=== PATIENT | male | born 1985 | race Caucasian/White ===

== ENCOUNTER 2024-07-31 12:49 | Inpatient (IN) | payer BC, SELFPAY ==
[2024-07-31] VITALS (21 sets, daily range): BP systolic 88–129; BP diastolic 50–78; BMI 24.7
--- NOTE | 2024-07-31 08:31 | EDRN ---
Pt has history of crohn's colitis and had J-pouch surgery awhile ago. Last night started to see blood coming out. Colon resection then colon reconnected. Pt filled toilet bowl w/ blood.
--- NOTE | 2024-07-31 08:51 | ED.GENMED ---
History of Present Illness
General
Chief Complaint: Rectal Bleeding
Time Seen by Provider: 07/31/24 08:17
History of Present Illness
History of Present Illness:
38-year-old male with history of Crohn's colitis presents to the emergency department for evaluation of bright red blood per rectum/bloody stool beginning yesterday. Reports mild abdominal cramping but no significant discomfort. Denies any
tenesmus or bowel urgency. No associated fever, chills, sweats, nausea, or vomiting. Prior abdominal surgery includes partial colectomy with J-pouch, ileostomy with revision, incisional hernia repair. Currently maintained on Remicade, has been
stable for quite some time. Last colonoscopy was in October. GI doctor is at [facility]
Past History
Past History
ED Past Medical History: Psychiatric (Depression, ADHD, substance abuse) and Other (Crohn's disease, chronic pain syndrome)
ED Past Surgical History: Bowel resection (Colon resection with J-pouch formation.) and Other (Hernia repair)
Social History
Alcohol: None
Drug: Former user
Personal: Single
Living: with family
Employment: Not employed
Family History
Family History: Other (Noncontributory)
Review of Systems
Review of Systems
Allergies reviewed?: Yes
Phy Exam
Physical Exam
Physical Exam:
GEN: Well appearing, NAD, WDWN
HEENT: Oral mucosa moist, no scleral icterus
Cardiac: Regular rate and rhythm, no murmur
Lung: No respiratory distress, no tachypnea
Abdomen: Soft, no focal tenderness, no rigidity
Rectal: No obvious rectal bleeding, no fissure, no hemorrhoid
MSK: No gross deformity or injuries
Skin: Good color, no pallor or jaundice, no rashes
Neuro: AO x3, moves all extremities freely
Psych: Calm, cooperative
Course
Orders/Labs/Results
Orders:
Orders
07/31/24 08:38
Cardiac Monitoring- Treatment ONCE
IV Insert/Care/Rem.- Treatment PRN
07/31/24 08:48
Type And Crossmatch [Type+Screen] Urgent
C-Reactive Protein Urgent
Comment: ADD ON
Complete Blood Count/With Diff Urgent
Comprehensive Metabolic Panel Urgent
Erythrocyte Sed Rate Urgent
Comment: ADD ON
07/31/24 08:50
Add On- LAB Urgent
Tests Added?: CRP, ESR
Iohexol [Omnipaque] See Protocol PO NOW STA
07/31/24 08:51
CT Abd/pel W Iv And Oral Contr Urgent
Comment:
Reason For Exam: bright red blood per rectum, hx of Crohns
07/31/24 09:16
ABO2 Routine
BBK Wristband Number:
Associate notified that ABO2 has been ordered: [id number]
Date: 07/31/24
Time: 09:10
Clinical Rehabilitation Specialist ID: [id number]
07/31/24 11:56
HYDROmorphone [Dilaudid] 0.5 mg IV NOW STA
07/31/24 12:40
Admit/Transfer Patient As Directed
Co-Sign Provider:
Level of Care: Inpatient admission
Assign to:: IMU- Intermediate Care
Physician / Group: tiffanie
Diagnosis: chrohns flare
Reason for Hospitalization: chrohns flare
Expected length of stay greater than two midnights?: Yes
ELOS- Estimated Length of Stay in days: 2
I certify the patient meets the requirements for IP care: Yes
PRN Pain Medication Management As Directed
May give lesser potent ordered pain med per pt: Yes
preference::
Protocol:: Medication orders for pain may be administered in a
manner that supports deferring to patient preference
when the pt is:
- Requesting an ordered lesser potent pain medication.
Least to most potent pain medications are defined
as: acetaminophen < NSAID < tramadol < opioids
(morphine, oxycodone, hydromorphone).
- Requesting a lesser dose of the same medication IF
ORDERED.
- Requesting a less intrusive route of administration
if both routes are prescribed by the provider (PO <
IV).
07/31/24 12:41
Code Status As Directed
Resuscitation Status: Full Code
07/31/24 13:26
C difficile Antigen & Toxins Urgent
ALBINO Source: Feces/Stool
Specimen Description:
Date Specimen was Collected: 07/31/24
Time Specimen was Collected: 13:24
Stool Culture Urgent
ALBINO Source: Feces/Stool
Specimen Description:
Date Specimen was Collected: 07/31/24
Time Specimen was Collected: 13:25
Abnormal Lab Results
07/31/24
08:48
RBC 4.04 L 10^6/uL
(4.70-6.10)
Hgb 10.9 L g/dL
(13.0-18.0)
Hct 34.0 L %
(39.0-52.0)
MCHC 32.1 L g/dL
(33.0-37.0)
RDW 14.9 H %
(11.5-14.5)
MPV 12.1 H fL
(7.4-10.4)
Absolute Lymphs (auto) 1.1 L 10^3/uL
(1.2-3.4)
Lymphocytes % 19.3 L %
(20.5-51.1)
Glucose 105 H mg/dl
(70-99)
Calcium 7.9 L mg/dl
(8.4-10.2)
Total Protein 6.1 L g/dl
(6.3-8.2)
07/31/24 08:48
07/31/24 08:48
Vital Signs
Initial and Last Documented VS:
Initial Vital Signs
Temp Pulse Resp BP Pulse Ox
98.2 F 66 16 129/76 100
07/31/24 08:11 07/31/24 08:11 07/31/24 08:11 07/31/24 08:11 07/31/24 08:11
Last Documented Vital Signs
Temp Pulse Resp BP Pulse Ox
98.2 F 61 17 109/56 100
07/31/24 08:11 07/31/24 14:15 07/31/24 14:15 07/31/24 13:30 07/31/24 14:15
MDM/Problems Addressed
MDM/Problems Addressed:
On arrival the patient had only noted a few small episodes of bright red blood per rectum and thus was sent for a CT scan with IV and p.o. contrast to evaluate for potential Crohn's flareup, this was unremarkable however shortly after completion of
study the patient had multiple high-volume episodes of blood per rectum and a vasovagal event prompting repeat hemoglobin check, IV fluid resuscitation, and repeat CT angiogram study, and this was unremarkable however limited due to retained
contrast within the bowel. He stabilized thereafter and did not have any further episodes of blood per rectum, will be admitted to the hospitalist service. Given negative inflammatory markers do not see indication for steroids at this time
*Critical Care Note
Total Time (30-74mins, 75-104mins- exclusive of procedures): Not Applicable
Update Note
Update Note:
1322: Staff emergency alert called due to patient having a vagal episode while passing another episode of bright red blood per rectum. Assisted back into bed, bradycardic and normotensive. Repeat hemoglobin will be sent and 1 L normal saline
ordered, will send for CT angiogram of the abdomen pelvis due to increased frequency of blood per rectum
ED Attending Note
-
Portions of this chart may have been created with voice recognition software.� Occasional wrong word or��sound alike� substitutions may have occurred due to the inherent limitations of voice recognition software.
Discharge Plan
Departure
Patient Disposition: Admit
Date of Disposition: 07/31/24
Time of Disposition: 12:22
Admit to: Med/Surg
Presentation/result/management discussed w/ accepting MD/DO: Hospitalist
Patient with high blood pressure during this ER visit?: No
Discharge Problem:
Bright red blood per rectum
Interventions
Interventions:
*Risk Screen - Suicide Last Done: 07/31/24 08:11
*General Assessment Last Done: 07/31/24 08:34
*Neglect/Abuse Screening Last Done: 07/31/24 08:11
ED- Fall Risk Assessment Last Done: 07/31/24 08:34
*ED COVID-19 Vaccine History Last Done: 07/31/24 08:34
EB-Xdlhdj-Qdomtgonnw Assessment Last Done: 07/31/24 09:06
ED- Cardiac Assessment Last Done: 07/31/24 09:06
ED- Pulmonary Assessment Last Done: 07/31/24 09:06
[2024-07-31 09:04] LABS: % Basophils 0.7 % (0-2); % Eosinophils 0.7 % (0-6); % Lymphocytes 19.3 % (20.5-51.1); % Monocytes 5.9 % (1.7-9.3); % Neutrophils 73.4 % (42.2-75.2); Absolute Lymphocytes 1.1 10^3/uL (1.2-3.4); Absolute Monocytes 0.3 10^3/uL (0.1-0.6); Hemoglobin 10.9 g/dL (13.0-18.0); Mean Corp Hgb Conc. 32.1 g/dL (33.0-37.0); Mean Corpuscular Volume 84.2 fL (80.0-94.0); Mean Platelet Volume 12.1 fL (7.4-10.4); Nucleated Red Blood Cells % 0 % (-); Platelet Count 191 10^3/uL (130-400); Red Blood Cell Count 4.04 10^6/uL (4.70-6.10); Red Cell Dist. Width 14.9 % (11.5-14.5); White Blood Cell Count 5.5 10^3/uL (4.8-10.8)
[2024-07-31 09:13] LABS: ALT (SGPT) 18 U/L (0-50); AST (SGOT) 20 U/L (17-59); Albumin 3.8 g/dl (3.5-5.0); Alkaline Phosphatase 39 U/L (38-126); Blood Urea Nitrogen 19 mg/dl (9-20); Calcium 7.9 mg/dl (8.4-10.2); Carbon Dioxide 26 mmol/L (22-30); Chloride 104 mmol/L (98-107); Estimated Creatinine Clearance > 125 ml/min; Glucose 105 mg/dl (70-99); Potassium 4.2 mmol/L (3.5-5.1); Sodium 138 mmol/L (135-145); Total Bilirubin 0.2 mg/dl (0.2-1.3); Total Protein 6.1 g/dl (6.3-8.2); eGFR > 60.00
[2024-07-31] MEDS: OMNIPAQUE 50 ML PO (09:13)
[2024-07-31 09:15] LABS: C-Reactive Protein < 5.00 mg/L (0.0-10.00)
[2024-07-31 09:23] LABS: Erythrocyte Sed Rate 7 mm/hour (0-20)
--- NOTE | 2024-07-31 11:40 | EDRN ---
Pt returned from CT w/blood on bed, large amount. Pt then had blood in BR thereafter.
--- NOTE | 2024-07-31 11:45 | EDRN ---
Pt complaining of pain and Geraldo SHARMA informed.
[2024-07-31] MEDS: DILAUDID 0.5 MG IV ×4 (12:12→23:20)
--- NOTE | 2024-07-31 12:42 | HPS.HSE ---
Family Physician
-
Family Physician: NOELLE GERMAN PA-C
Chief Complaint
-
bloody stool
History of Present Illness
38-year-old male past medical history of Crohn's disease status post partial colon resection with J-pouch formation, ileostomy with revision, incisional hernia repair in 2012 on Remicade, chronic pain syndrome, depression, ADHD, presenting with
bright red blood per rectum and multiple episodes of diarrhea starting yesterday. He has mild abdominal cramping. He denies any pain with bowel movements. Denies fevers or chills, sweating or nausea or vomiting. No recent antibiotic use. Has
not recently been on steroids.
His GI doctor at [facility]. His last colonoscopy was in October.
Denies smoking, alcohol, drugs.
No family history of Crohn's disease or autoimmune disorders.
Medical History
Past Medical History
Past Medical History: Reports Other (Crohn's disease status post partial colon resection with J-pouch formation, ileostomy with revision, incisional hernia repair in 2013 on Remicade, chronic pain syndrome, depression, ADHD,)
Past Surgical History: Reports Other (Bowel resection (Colon resection with J-pouch formation.) and Other (Hernia repair))
Social History
Tobacco: Non-smoker
Alcohol: None
Drug: None
Family History
Family History: Not pertinent
Allergies / Home Medications
Allergies reflects when Allergies were last updated in [employer].
Home Medications with original date entered in [employer]
Allergy/Medication List:
Allergies
Allergy/AdvReac Type Severity Reaction Status Date / Time
cefaclor [From [facility]] Allergy Anaphylaxis Verified 07/31/24 08:11
Home Medications
dextroamphetamine-amphetamine ER 30 mg 24hr capsule,extend release (Adderall XR) 30 mg PO DAILY 04/17/15
Review of Systems
-
History Source: Patient
A 12 point ROS was completed and negative except as noted: Yes
Constitutional: Reports No Symptoms
EENT: Reports No Symptoms
Respiratory: Reports No Symptoms
Cardiac: Reports No Symptoms
Abdomen/GI: Reports See HPI
: Reports No Symptoms
Musculoskeletal: Reports No Symptoms
Skin: Reports No Symptoms
Neurological: Reports No Symptoms
Endocrine: Reports No Symptoms
Hematologic/Lymphatic: Reports No Symptoms
Psych: Reports No Symptoms
Physical Exam
Vital Signs
Vital Signs
Temp Pulse Resp BP Pulse Ox
98.2 F 69 17 112/64 100
07/31/24 08:11 07/31/24 12:30 07/31/24 12:30 07/31/24 12:00 07/31/24 12:30
Physical Exam
General: Well Developed, Well Nourished and No Apparent Distress
HEENT: NormoCephalic, Moist mucous membranes and Atraumatic
Respiratory: Clear
Cardiac: S1/S2 and Regular Rhythm; No Murmur or Rub
GI: Soft, Non Distended, Normal Bowel Sounds and Tender (periumbilical ); No Organomegaly
Rectal: Deferred by Provider
Musculoskeletal: No Clubbing, No Cyanosis and No Edema
Skin: No Rash
Neuro: Nonfocal/grossly intact
Laboratory Results
-
07/31/24 08:48
07/31/24 08:48
Laboratory Results
Total Bilirubin 0.2 mg/dl (0.2-1.3) 07/31/24 08:48
AST 20 U/L (17-59) 07/31/24 08:48
ALT 18 U/L (0-50) 07/31/24 08:48
Alkaline Phosphatase 39 U/L (38-126) 07/31/24 08:48
Data Reviewed
-
Lab Data: Labs Reviewed by me
Old Records: Reviewed
Impression/Plan
-
IMPRESSION:
PLAN:
# Bright red blood per rectum secondary to enteritis likely secondary to Crohn's flare
# Crohn's disease status post partial colon resection with J-pouch formation, ileostomy with revision, incisional hernia repair
-CT abdomen pelvis shows postoperative changes of colectomy with prominence of the distal small bowel Aramis postoperative, short segment of mild wall thickening and mucosal hyperenhancement within the distal small bowel adjacent to the pouch
anastomosis suspicious for enteritis, mild prominence of intrahepatic bile ducts
-Has been stable on Remicade
-N.p.o.
-IV fluids
-Check stool culture, C. difficile
-GI consulted
Chronic normocytic anemia
-Hemoglobin stable at 10.9
Chronic pain syndrome
Depression/ADHD
Full code
DVT prophylaxis�SCDs
N.p.o.
--- NOTE | 2024-07-31 13:25 | EDRN ---
Pt went to BR to have BM and fainted on toilet. Had large amount of blood in stool specimen container. pt was taken from toilet to stretcher in BR. Pt was all sweaty and H+H drawn and sent to lab w/ CTA of Abd/Pelv ordred and IVF 1 l wide open hung
to infuse at this time.
[2024-07-31] MEDS: NSS 1000 IV ×2 (13:29→18:20)
[2024-07-31 13:32] LABS: Hematocrit 31.4 % (39.0-52.0); Hemoglobin 10.1 g/dL (13.0-18.0)
--- NOTE | 2024-07-31 13:36 | EDRN ---
Surgeon Dr. Fry was in to see pt. Dr. Del Valle in to see pt now.
--- NOTE | 2024-07-31 13:53 | EDRN ---
Pt taken to CT at this time.
--- NOTE | 2024-07-31 14:12 | EDRN ---
Pt in BR at this time.
--- NOTE | 2024-07-31 16:45 | EDRN ---
Pt medicated for pain at this time after requesting pain medication.
--- NOTE | 2024-07-31 17:03 | EDRN ---
Report called to Marlene RAMIREZ at this time. Pt is assigned to IMU bed 3344 at this time that is in IN PROGRESS status.
--- NOTE | 2024-07-31 18:42 | PTCARENOTE ---
Admitted to 3344, IMU monitors placed. Admission completed at bedside. IVF initiated as ordered. NPO x sips of clears- water given pt informed. Family at bedside.
[2024-07-31] MEDS: ATIVAN 0.5 MG PO (22:10)
[2024-08-01] VITALS (17 sets, daily range): BP systolic 109–132; BP diastolic 55–79
[2024-08-01] MEDS: DILAUDID 1 MG IV ×6 (02:26→21:34)
[2024-08-01] MEDS: NSS 1000 IV ×3 (05:02→23:35)
--- NOTE | 2024-08-01 05:17 | PTCARENOTE ---
Assumed care of Pt at shift change; Pt resting comfortably in bed with at bedside; Pt anxious and stated that he is unable to use bedpan or urinal while in bed - insisted on getting up to bathroom. Agreed to trial Pt standing at bedside - Pt
became severely dizzy and needed to be assisted back to bed immediately. B/P 111/76 lying and 104/64 sitting; Pt continued to refuse bedpan. Eventually symptoms improved and able to get Pt to bedside commode safely. Pt passed large amount of dark
red blood x 2 overnight. Pain poorly managed with Dilaudid 0.5mg q 4hrs - Provider notified, order received for Dilaudid 1mg. Will continue to monitor and assess.
[2024-08-01 06:27] LABS: % Basophils 0.4 % (0-2); % Eosinophils 0.4 % (0-6); % Immature Granulocytes 0.2 % (0-0.5); % Lymphocytes 26.9 % (20.5-51.1); % Monocytes 7.4 % (1.7-9.3); % Neutrophils 64.7 % (42.2-75.2); Absolute Lymphocytes 1.2 10^3/uL (1.2-3.4); Absolute Monocytes 0.3 10^3/uL (0.1-0.6); Absolute Neutrophils 2.9 10^3/uL (1.4-6.5); Hematocrit 20.3 % (39.0-52.0); Hemoglobin 6.6 g/dL (13.0-18.0); Mean Corp Hgb Conc. 32.5 g/dL (33.0-37.0); Mean Corpuscular Hgb 27.2 pg (27.0-31.0); Mean Corpuscular Volume 83.5 fL (80.0-94.0); Nucleated Red Blood Cells % 0 % (-); Red Blood Cell Count 2.43 10^6/uL (4.70-6.10); Red Cell Dist. Width 14.9 % (11.5-14.5); White Blood Cell Count 4.5 10^3/uL (4.8-10.8)
--- NOTE | 2024-08-01 06:51 | CON.GI ---
Consultation
-
Date/Time Consultation Requested: 07/31/2024, 12:42
Date/Time Consultation Performed: 08/01/2024, 6:52 AM
Requesting Provider: Dr. Cope
Performing Provider: Dr. Hendricks
Reason for Consultation: Bright red blood per rectum, hx of Crohn's
Medical History
Chief Complaint / HPI
Chief Complaint: Bright red blood per rectum
History of Present Illness:
Mr. Christian is a 38 y.o male with past medical history of Crohn's disease s/p J-pouch (given previous c/f UC and s/p three-stage IPAA with creation of J pouch in [id number]) on IFX (q 8 weeks) and chronic pain syndrome who presented to the ED with
bright red blood per rectum. Gastroenterology has been consulted for further evaluation and management.
Patient states he was in his USOH until two days ago on Friday when he developed painless, bright red blood per rectum. He denies any prior history of rectal bleeding or bloody stools in the past. States he was having well-formed bowel movements
which was somewhat atypical when he was up in [place] on Friday as he normally has looser bowel movements given his J pouch. Normally, he usually has 4-5 bowel movements on a regular basis. Denies any abdominal pain or preceding diarrhea prior
to his bloody stools. He states he had about three episodes of bloody stools with significant bright red blood and clots in the toilet bowel on Friday. Continued to progress in Friday early AM with mild abdominal cramping. Otherwise, he denies any
fevers, chills, night sweats or other constitutional symptoms. Denies any NSAIDs and strictly avoids these. No other blood thinners or anticoagulants. Otherwise, he denies any recent steroids, changes in medications, or recent antibiotics. Denies
any prior or recent flares of his Crohn's disease or prior episodes of pouchitis and/or cuffitis in the past.
In regards to his Crohn's history, he follows closely at [facility] with his primary Hydrocrane Operator, Dr. Lionel Cain. Records are limited as patient reports he has received all of his IBD care at [facility]. From what he tells me, he reports being
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 There was
concern on a repeat colonoscopy with inflammation and concern that his initial diagnosis was likely Crohn's disease and was started on IV Remicade. Notes he has been on infusions every 8 weeks with Remicade and denies any recent flares or other
complications from his IBD. Additionally, notes his last colonoscopy was back on October of this year in 2023 and reportedly normal without any endoscopic signs of inflammation. He recently obtained blood work as well earlier in June 2024 and was
reportedly normal with normal ESR/CRP.
In the ED, patient was afebrile and HD-stable. Labs notable for BUN 19 and Hazmat Cdl Driver 0.9 and LFTS wnl. ESR (7) and CRP (< 5.00) wnl. CBC with Hgb 10.9 with MCV 84.2 (previously 11.6 on 03/2015), WBC 5.5, and plts 191. CT Abd/pelvis 07/31 w/ IV and oral
contrast revealed post operative changes of colectomy with prominence of the distal small bowel which is likely postoperative in nature. There is a short segment of mild wall thickening and mucosal hyperenhancement within the distal small bowel,
adjacent to the pouch anastomosis which is suspicious for enteritis. There is no evidence of intra-abdominal abscess. Additionally, mild prominence of the intrahepatic bile ducts. CTA Abd/pelvis 07/31 (-) for GI hemorrhage secondary to previous
contrast material within bowel, post resection of the majority of the colon and decreased distention of the bowel in the right upper quadrant and rectosigmoid region as above. There is persistent concentric mural thickening of short segment of small
bowel loop adjacent to anastomotic site in the right upper quadrant suggesting acute inflammatory change most likely related to the given history of Crohn's disease. No extraluminal collection is identified. Minimal intrahepatic biliary dilatation.
Given his ongoing bloody stools he was admitted to IMU for further management.
Past Medical History
Past Medical History: Other (Crohn's disease status post J-pouch formation, ileostomy with revision, incisional hernia repair in 2013 on Remicade, chronic pain syndrome, depression, ADHD)
Past Surgical History: Other (Hx of J pouch and hernia repair)
Social History
Tobacco: Non-Smoker
Alcohol: None
Drug: None
Personal:
Family History
Family History: Reviewed & Not Pertinent
Allergies / Home Medications
Allergy/AdvReac Type Severity Reaction Status Date / Time
cefaclor [From [facility]] Allergy Anaphylaxis Verified 07/31/24 08:11
�Medication �Instructions �Recorded
dextroamphetamine-amphetamine ER 30 mg PO DAILY 04/17/15
30 mg 24hr capsule,extend release
(Adderall XR)
Review of Systems
-
All other systems: A 12 pt ROS was Negative except as stated above in HPI
Vital Signs
Temp Pulse Resp BP Pulse Ox
98.4 F 68 18 117/55 96
07/31/24 23:22 08/01/24 04:00 08/01/24 04:00 08/01/24 04:00 08/01/24 00:59
Physical Exam
Exam
General: Well Developed, Well Nourished, No Apparent Distress and Comfortable
HEENT: Anicteric and Moist Mucous Membranes
Respiratory: Clear and Non Labored Respirations
Cardiac: S1/S2 and Regular Rhythm
GI: Soft, Non Tender, Non Distended and Other (Well healed abdominal scars from prior surgeries)
Skin: Warm
Neuro: AO x 3 and Nonfocal/Grossly Intact
Psych: Calm
Results
WBC 4.5 10^3/uL (4.8-10.8) L 08/01/24 05:59
Hgb 6.6 g/dL (13.0-18.0) L* D 08/01/24 05:59
Hct 20.3 % (39.0-52.0) L* 08/01/24 05:59
MCV 83.5 fL (80.0-94.0) 08/01/24 05:59
Plt Count 191 10^3/uL (130-400) 07/31/24 08:48
Absolute Neuts (auto) 2.9 10^3/uL (1.4-6.5) 08/01/24 05:59
Sodium 138 mmol/L (135-145) 07/31/24 08:48
Potassium 4.2 mmol/L (3.5-5.1) 07/31/24 08:48
Chloride 104 mmol/L (98-107) 07/31/24 08:48
Carbon Dioxide 26 mmol/L (22-30) 07/31/24 08:48
BUN 19 mg/dl (9-20) 07/31/24 08:48
Creatinine 0.9 mg/dL (0.7-1.3) 07/31/24 08:48
Calcium 7.9 mg/dl (8.4-10.2) L 07/31/24 08:48
Total Bilirubin 0.2 mg/dl (0.2-1.3) 07/31/24 08:48
AST 20 U/L (17-59) 07/31/24 08:48
ALT 18 U/L (0-50) 07/31/24 08:48
Alkaline Phosphatase 39 U/L (38-126) 07/31/24 08:48
Diagnostic Image Results: As detailed above
Prior GI Procedures: No prior endoscopic records (at [facility])
Assessment / Plan
-
Mr. Christian is a 38 y.o male with past medical history of Crohn's disease s/p J-pouch (given previous c/f UC and s/p three-stage IPAA with creation of J pouch in [id number]) on IFX (q 8 weeks) and chronic pain syndrome who presented to the ED with
bright red blood per rectum. Gastroenterology has been consulted for further evaluation and management.
#Hematochezia #Lower GI Bleed
#Acute Blood Loss Anemia
#Hx of Crohn's Disease (on IFX q 8 weeks, previously in remission)
#S/p J-pouch/IPAA ([id number])
Impression: Patient with history Crohn's disease s/p previous J pouch ([id number]) which appears to have been in remission on IFX (q 8 weeks) presenting with multiple episodes of painless hematochezia over the past two days found to have acute blood
loss anemia and CT imaging 07/31 revealing post-operative changes of prior colectomy with prominence of the distal SB with mild wall thickening and mucosal hyperenhancement adjacent to the pouch anastomosis. CTA 07/31 grossly limited given previous
oral contrast and (-) for GI hemorrhage, however revealed concentric mural thickening of short segment of small bowel loop adjacent to anastomotic site in the right upper quadrant suggesting acute inflammatory change most likely related to the given
history of Crohn's disease. No previous flares and last flex-sig / pouchoscopy was reportedly normal back on 10/2023 and felt to be in endoscopic remission on IFX. Given his CT findings and bloody stools, concern for Crohn's pre-pouch ileitis with
likely ulcer formation of SB given CT imaging versus anastomotic ulceration. Doubt infectious etiology and C Diff testing negative. Much less likely pouchitis and/or cuffitis given degree of bloody stools and acute blood loss anemia. Denies any
other NSAIDs or chronic prior steroids. No other symptoms to suggest flare given his normal inflammatory markers on admission with CRP < 5 and ESR 7 on 07/31. Regardless, would benefit from flex-sig / pouchoscopy for further evaluation of both his
pouch along with distal SB given concern for possible pre-pouch ileitis. Given his acute drop in Hgb from 10s -> 7s would benefit from ongoing blood transfusions and would hold-off on repeat CTA given previous contrast within bowel and overall
HD-stability.
Recommendations:
- Okay for CLD, keep NPO at MN
- Trend Hgb with CBC q 8 hrs, transfuse for goal Hgb > 7.0
- Ordered 1 uPRBC given drop in Hgb, f/u post-transfusion CBC
- Stool studies (-) for C Diff, pending stool culture
- Trend serial CRP q 48 hrs while inpatient
- Agree with holding off on CTA given previous contrast material and rise in Hgb on repeat CBC
- Start bowel prep this afternoon prior to flex-sig to improve visualization prior to scope
- Plan for Flex-Sig tomorrow, 08/02/2024
- If recurrent large volume hematochezia, significant drop in Hgb, or HD-instability would obtain stat CTA in attempts of further localization
- Avoidance of all NSAIDs and opioids. Okay for acetaminophen if needed for pain control for abdominal cramps
- Recommend chemical VTE ppx (ordered lovenox) while inpatient given his history of IBD and high risk for VTE
- Will need to obtain records at [facility] as patient follows closely with Dr. Lionel Cain at [facility]. Will notify his primary GI once flex-sig was been performed
- Rest of care per primary team
#Mild Intrahepatic Biliary Ductal Dilatation
See on both CT and CTA with mild prominence of the intrahepatic bile ducts. No other RUQ discomfort or other biliary colic. LFTs within normal limits on admission. No prior opioids
Recommendations:
- Defer MRI/MRCP as this time given nml LFTs
- Could consider MRI/MRCP as an outpatient if biliary ductal dilatation is a new finding and no previous MRI/MRCP in the past
Discussed with primary internal medicine team this AM.
GI team will continue to follow. Please call with any questions or concerns.
Data Reviewed
-
Radiology: Image Personally Visualized and interpreted and Report Reviewed by me
CT Scan: Image Personally Visualized and interpreted and Report Reviewed by me
Old Records: Requested
-
-
Thank you for consultation and allowing me to participate in the patient's care. Please call the content checker GI physician during the after hours with any questions or concerns.
[2024-08-01 06:55] LABS: ALT (SGPT) 13 U/L (0-50); AST (SGOT) 14 U/L (17-59); Albumin 2.1 g/dl (3.5-5.0); Alkaline Phosphatase 24 U/L (38-126); Blood Urea Nitrogen 12 mg/dl (9-20); Calcium 5.7 mg/dl (8.4-10.2); Carbon Dioxide 20 mmol/L (22-30); Chloride 116 mmol/L (98-107); Estimated Creatinine Clearance > 125 ml/min; Glucose 77 mg/dl (70-99); Potassium 2.9 mmol/L (3.5-5.1); Sodium 139 mmol/L (135-145); Total Bilirubin 0.3 mg/dl (0.2-1.3); eGFR > 60.00
--- NOTE | 2024-08-01 07:16 | W.PN.HOSP.TC ---
Today's Communication/Plan
-
clear liquid diet, bowel prep, npo after midnight for flex sigmoidoscopy as per Gi
pain control prn IV Tylenol mod severe pain, Dilaudid severe breakthrough pain
Monitor H&H, transfusion goal 8 given concern active bleeding
Lovenox dvt ppx as per GI
Monitor and Replete electrolytes as necessary.
Assessment / Plan
Assessment / Plan
Physical Exam
General: No acute distress, appears comfortable at this time
HEENT: NormoCephalic, Moist mucous membranes and Atraumatic
Respiratory: Clear
Cardiac: S1/S2 and Regular Rhythm; No Murmur or Rub
GI: Soft, Non Distended, Normal Bowel Sounds and Mild tenderness; No Organomegaly
Musculoskeletal: No Clubbing, No Cyanosis and No Edema
Skin: No Rash
Neuro: Nonfocal/grossly intact
38M Crohn's disease status post partial colon resection with J-pouch formation, ileostomy reversal, incisional hernia repair in 2012 on Remicade, chronic pain syndrome, depression, ADHD, presented with bright red blood per rectum and multiple
episodes of diarrhea. Mild abdominal cramping. Denied pain with bowel movements, fevers, chills, sweating, nausea/vomiting. No recent antibiotic use. Has not recently been on steroids.
Dr. Lionel Cain His GI doctor at [place]. His last colonoscopy was in October.
# Bright red blood per rectum secondary to enteritis likely secondary to Crohn's flare
# Crohn's disease status post partial colon resection with J-pouch formation, ileostomy with revision, incisional hernia repair
-CT abdomen pelvis showed postoperative changes of colectomy with prominence of the distal small bowel Aramis postoperative, short segment of mild wall thickening and mucosal hyperenhancement within the distal small bowel adjacent to the pouch
anastomosis suspicious for enteritis, mild prominence of intrahepatic bile ducts
-CTA was also done but largely non-diagnostic due to prior oral contrast use
-Has been stable on Remicade
-IV fluids
-C. difficile neg, other stool study results pending
-prn IV tylenol mod severe pain, dilaudid severe breakthrough pain
GI consult appreciated
-clear liquid diet, npo after midnight for flex sigmoidoscopy 08/02/24
Acute Blood Loss Anemia
Chronic normocytic anemia
-Monitor H&H
-Hgb low 6.6, 7.7 on repeat without transfusion, still drop from initial presentation 10.9
-Vital signs otherwise stable
-Responded well to 1PRBC transfusion
-cont monitoring H&H, transfuse goal 8 given concern active bleeding
#Hypokalemia
#Hypocalcemia
Monitor and replete as necessary
Chronic pain syndrome
Depression/ADHD
Full code
DVT prophylaxis� Lovenox as per GI
Discussed with patient, patient's Lindsey, Gi, and Nurse
I spent a total of 50 minutes with the patient or on the floor. More than 50% of this time involved counseling and coordination of care.
Anticipated Discharge: 24 - 48 hours
Subjective/Interval History
-
Date of Service: August 01, 2024
Seen and examined at bedside in no acute distress resting comfortably in bed. bloody bowel movements noted overnight. Denies pain nausea lightheadedness. Lindsey present during evaluation.
Objective Data
-
Labs:
Laboratory Results
08/01/24 08/01/24
05:59 07:08
WBC 4.5 L Pending
Hgb 6.6 L* D Pending
Hct 20.3 L* Pending
Plt Count Pending Pending
Sodium 139
Potassium 2.9 L D
Chloride 116 H
Carbon Dioxide 20 L
BUN 12
Creatinine 0.6 L
Glucose 77
Calcium 5.7 L* D
Total Bilirubin 0.3
AST 14 L
ALT 13
Alkaline Phosphatase 24 L
Vital Signs:
Vital Signs
Temp Pulse Resp BP Pulse Ox
98.4 F 68 18 117/55 96
07/31/24 23:22 08/01/24 04:00 08/01/24 04:00 08/01/24 04:00 08/01/24 00:59
I&O
07/31/24 08/01/24 08/02/24
06:59 06:59 06:59
Intake Total 900 / 900
Output Total 1100 / 1100
Balance -200 / -200
[2024-08-01 07:41] LABS: % Basophils 0.6 % (0-2); % Eosinophils 0.4 % (0-6); % Immature Granulocytes 0.4 % (0-0.5); % Lymphocytes 21.7 % (20.5-51.1); % Monocytes 8.9 % (1.7-9.3); Absolute Lymphocytes 1.2 10^3/uL (1.2-3.4); Absolute Monocytes 0.5 10^3/uL (0.1-0.6); Absolute Neutrophils 3.7 10^3/uL (1.4-6.5); Hematocrit 23.1 % (39.0-52.0); Hemoglobin 7.7 g/dL (13.0-18.0); Mean Corp Hgb Conc. 33.3 g/dL (33.0-37.0); Mean Corpuscular Hgb 27.1 pg (27.0-31.0); Mean Corpuscular Volume 81.3 fL (80.0-94.0); Nucleated Red Blood Cells % 0 % (-); Red Blood Cell Count 2.84 10^6/uL (4.70-6.10); Red Cell Dist. Width 14.8 % (11.5-14.5); White Blood Cell Count 5.4 10^3/uL (4.8-10.8)
[2024-08-01 08:44] LABS: Platelet Count 125 10^3/uL (130-400)
[2024-08-01 08:45] LABS: Mean Platelet Volume 12.2 fL (7.4-10.4); Platelet Count 147 10^3/uL (130-400)
[2024-08-01] MEDS: KCL 270 MEQ IV (08:55)
--- NOTE | 2024-08-01 12:03 | CM ---
Pt seen bedside w/ spouse. Pt lives w/ spouse in 2nd flr apartment
Pt is independent, denies DME use for ambulating or daily functioning
No SNF/VN/PT hx. Pt states he engaged in OP rehab in for his knee
Address, point of contact and insurance verified
PCP: Dr. Fred Loredo
[facility]
GI consulted
Plan: Home; no needs anticipated
[2024-08-01] MEDS: CALCIUM GLUCONATE 100 IV (14:24)
[2024-08-01] MEDS: NULYTELY SOLUTION 4 LITERS PO (16:06)
[2024-08-01] MEDS: LOVENOX 30 MG SC (17:08)
[2024-08-01 17:22] LABS: Hematocrit 26.2 % (39.0-52.0); Hemoglobin 8.7 g/dL (13.0-18.0)
[2024-08-01] MEDS: OFIRMEV 100 IV (20:34)
[2024-08-01 22:21] LABS: Hematocrit 25.2 % (39.0-52.0); Hemoglobin 8.2 g/dL (13.0-18.0)
[2024-08-01 22:32] LABS: Blood Urea Nitrogen 12 mg/dl (9-20); Calcium 7.7 mg/dl (8.4-10.2); Carbon Dioxide 26 mmol/L (22-30); Chloride 110 mmol/L (98-107); Estimated Creatinine Clearance > 125 ml/min; Glucose 95 mg/dl (70-99); Potassium 3.8 mmol/L (3.5-5.1); Sodium 138 mmol/L (135-145); eGFR > 60.00
[2024-08-01] MEDS: NSS (PRESERVATIVE FREE) 0.25 ML IV (22:40)
[2024-08-01] MEDS: ATIVAN 0.5 MG IV (22:40)
[2024-08-02] VITALS (17 sets, daily range): BP systolic 16–124; BP diastolic 63–83
[2024-08-02] MEDS: DILAUDID 1 MG IV ×7 (00:38→21:51)
[2024-08-02 04:21] LABS: Hematocrit 24.3 % (39.0-52.0); Hemoglobin 7.9 g/dL (13.0-18.0); Mean Corp Hgb Conc. 32.5 g/dL (33.0-37.0); Mean Corpuscular Hgb 26.7 pg (27.0-31.0); Mean Corpuscular Volume 82.1 fL (80.0-94.0); Mean Platelet Volume 12.1 fL (7.4-10.4); Platelet Count 132 10^3/uL (130-400); Red Blood Cell Count 2.96 10^6/uL (4.70-6.10); Red Cell Dist. Width 14.9 % (11.5-14.5); White Blood Cell Count 3.8 10^3/uL (4.8-10.8)
[2024-08-02 04:36] LABS: Blood Urea Nitrogen 11 mg/dl (9-20); Calcium 7.5 mg/dl (8.4-10.2); Carbon Dioxide 24 mmol/L (22-30); Chloride 111 mmol/L (98-107); Estimated Creatinine Clearance > 125 ml/min; Glucose 95 mg/dl (70-99); Magnesium 1.9 mg/dl (1.6-2.3); Potassium 3.6 mmol/L (3.5-5.1); Sodium 139 mmol/L (135-145); eGFR > 60.00
--- NOTE | 2024-08-02 05:55 | PTCARENOTE ---
Pt having red to tint brownish clear stools over night. Pt having cramping pain in ABD, see MAR. Pt NPO since midnight. Pt morning labs showing Hgb 7.9 Night TELESALES AGENT made aware, will continue to trend. Pt having BRP with stand by assist. Pt denying
dizziness when up. Call piedra within reach.
[2024-08-02] MEDS: OFIRMEV 100 IV ×2 (07:00→15:00)
[2024-08-02] MEDS: NSS 1000 IV ×2 (07:01→18:27)
--- NOTE | 2024-08-02 14:37 | PTCARENOTE ---
pt tolerating clear lquids. no rectal bleeding observed. egd and flex sig completed. waste disposal plant operator spoke with pt and his family.
--- NOTE | 2024-08-02 15:25 | W.PN.HOSP.TC ---
Today's Communication/Plan
-
CLD
GI engaging with GI at [facility]/[place] to Finalize plans
Assessment / Plan
Assessment / Plan
Physical Exam
General: No acute distress, appears comfortable at this time
HEENT: NormoCephalic, Moist mucous membranes and Atraumatic
Respiratory: Clear
Cardiac: S1/S2 and Regular Rhythm; No Murmur or Rub
GI: Soft, Non Distended, Normal Bowel Sounds and Mild tenderness; No Organomegaly
Musculoskeletal: No Clubbing, No Cyanosis and No Edema
Skin: No Rash
Neuro: Nonfocal/grossly intact
38M Crohn's disease status post partial colon resection with J-pouch formation, ileostomy reversal, incisional hernia repair in 2012 on Remicade, chronic pain syndrome, depression, ADHD, presented with bright red blood per rectum and multiple
episodes of diarrhea. Mild abdominal cramping. Denied pain with bowel movements, fevers, chills, sweating, nausea/vomiting. No recent antibiotic use. Has not recently been on steroids.
Dr. Lionel Cain His GI doctor at [place]. His last colonoscopy was in October.
# Bright red blood per rectum secondary to enteritis likely secondary to Crohn's flare
# Crohn's disease status post partial colon resection with J-pouch formation, ileostomy with revision, incisional hernia repair
-CT abdomen pelvis showed postoperative changes of colectomy with prominence of the distal small bowel Aramis postoperative, short segment of mild wall thickening and mucosal hyperenhancement within the distal small bowel adjacent to the pouch
anastomosis suspicious for enteritis, mild prominence of intrahepatic bile ducts
-CTA was also done but largely non-diagnostic due to prior oral contrast use
-Has been stable on Remicade
-IV fluids
-C. difficile neg, other stool study results pending
-prn IV tylenol mod severe pain, dilaudid severe breakthrough pain
GI consult appreciated
-Flex sig today�patent ileal pouch�anal anastomosis; healthy-appearing J-pouch; ulceration at the site of the anastomosis found 15 to 20 cm proximal to the J-pouch, possible anastomotic small bowel ulcer
� Biopsies taken
� Avoid steroids, antibiotics at this time
� Start clear liquid diet
Follow pathology results
� Continue MRI�EEG for further evaluation, defer to GI
- Gastroenterology is engaged with IBD team at [facility]
Acute Blood Loss Anemia
Chronic normocytic anemia
-Monitor H&H
-Vital signs otherwise stable
-Responded well to 1PRBC transfusion
-cont monitoring H&H, transfuse goal 7 given concern active bleeding
#Hypokalemia
#Hypocalcemia
Monitor and replete as necessary
Chronic pain syndrome
Depression/ADHD
Full code
DVT prophylaxis� Lovenox as per GI
I spent a total of 51 minutes with the patient or on the floor. More than 50% of this time involved counseling and coordination of care.
Anticipated Discharge: 24 - 48 hours
Subjective/Interval History
-
Date of Service: August 02, 2024
Flex sigmoidoscopy today
Objective Data
-
Labs:
Laboratory Results
08/02/24
04:04
WBC 3.8 L
Hgb 7.9 L
Hct 24.3 L
Plt Count 132
Sodium 139
Potassium 3.6
Chloride 111 H
Carbon Dioxide 24
BUN 11
Creatinine 0.7
Glucose 95
Calcium 7.5 L
Vital Signs:
Vital Signs
Temp Pulse Resp BP Pulse Ox
98.6 F 64 16 112/68 100
08/02/24 10:55 08/02/24 11:10 08/02/24 11:10 08/02/24 11:10 08/02/24 11:10
I&O
08/01/24 08/02/24 08/03/24
06:59 06:59 06:59
Intake Total 900 / 900 1670 / 1670
Output Total 1100 / 1100
Balance -200 / -200 1669
Review of Systems
-
History Source: Patient
All other systems: Not reviewed unless documented
Data Reviewed
-
CT Scan: Report Reviewed by me
Medical Tests (Nuc Med, Echo etc): Report Reviewed by me
Labs: Labs Reviewed by me
[2024-08-02] MEDS: LOVENOX 40 MG SC (18:18)
[2024-08-02] MEDS: ATIVAN 0.5 MG IV (21:50)
[2024-08-02] MEDS: NSS (PRESERVATIVE FREE) 0.25 ML IV (21:51)
[2024-08-03] VITALS (12 sets, daily range): BP systolic 89–144; BP diastolic 59–78
[2024-08-03] MEDS: DILAUDID 1 MG IV ×6 (01:54→19:34)
[2024-08-03] MEDS: NSS 1000 IV (04:06)
[2024-08-03 05:07] LABS: Hematocrit 25.7 % (39.0-52.0); Hemoglobin 8.2 g/dL (13.0-18.0); Mean Corp Hgb Conc. 31.9 g/dL (33.0-37.0); Mean Corpuscular Hgb 27.2 pg (27.0-31.0); Mean Corpuscular Volume 85.4 fL (80.0-94.0); Mean Platelet Volume 12.7 fL (7.4-10.4); Platelet Count 144 10^3/uL (130-400); Red Blood Cell Count 3.01 10^6/uL (4.70-6.10); Red Cell Dist. Width 14.7 % (11.5-14.5)
[2024-08-03 05:43] LABS: Blood Urea Nitrogen 7 mg/dl (9-20); Calcium 7.7 mg/dl (8.4-10.2); Carbon Dioxide 27 mmol/L (22-30); Chloride 109 mmol/L (98-107); Estimated Creatinine Clearance > 125 ml/min; Glucose 91 mg/dl (70-99); Potassium 3.5 mmol/L (3.5-5.1); Sodium 141 mmol/L (135-145); eGFR > 60.00
--- NOTE | 2024-08-03 06:19 | W.PN.GI.CBS2 ---
Today's Communication / Plan
-
H/h remains stable without signs of recurrent bleeding from anastomotic ulcer. Reportedly had this in the past and likely ischemic in etiology. D/w patient's primary GI physician. Okay to discharge later this evening or tomorrow as without any signs
of recurrent lower GI bleeding. See rest of care as outlined below. GI will sign-off, please call back with any questions or concerns.
Assessment / Plan
-
Mr. Christian is a 38 y.o male with past medical history of Crohn's disease s/p J-pouch (given previous c/f UC and s/p three-stage IPAA with creation of J pouch in ) on IFX (q 8 weeks) and chronic pain syndrome who presented to the ED with
bright red blood per rectum. Gastroenterology has been consulted for further evaluation and management.
#Hematochezia #Lower GI Bleed
#Acute Blood Loss Anemia
#Hx of Crohn's Disease (on IFX q 8 weeks, previously in remission)
#S/p J-pouch/IPAA ()
Impression: Patient with history Crohn's disease s/p previous J pouch () which appears to have been in remission on IFX (q 8 weeks) presenting with multiple episodes of painless hematochezia over the past two days found to have acute blood
loss anemia and CT imaging 07/31 revealing post-operative changes of prior colectomy with prominence of the distal SB with mild wall thickening and mucosal hyperenhancement adjacent to the pouch anastomosis. CTA / grossly limited given previous
oral contrast and (-) for GI hemorrhage, however revealed concentric mural thickening of short segment of small bowel loop adjacent to anastomotic site in the right upper quadrant suggesting acute inflammatory change most likely related to the given
history of Crohn's disease. No previous flares and last flex-sig / pouchoscopy was reportedly normal back on 10/2023 and felt to be in endoscopic remission on IFX. Given his CT findings and bloody stools, concern for Crohn's pre-pouch ileitis with
likely ulcer formation of SB given CT imaging versus anastomotic ulceration. Doubt infectious etiology and C Diff testing negative. Much less likely pouchitis and/or cuffitis given degree of bloody stools and acute blood loss anemia. Denies any
other NSAIDs or chronic prior steroids. No other symptoms to suggest flare given his normal inflammatory markers on admission with CRP < 5 and ESR 7 on 07/31. Regardless, would benefit from flex-sig / pouchoscopy for further evaluation of both his
pouch along with distal SB given concern for possible pre-pouch ileitis. Given his acute drop in Hgb from 10s -> 7s would benefit from ongoing blood transfusions and would hold-off on repeat CTA given previous contrast within bowel and overall
HD-stability.
- S/p flex-sig / pouchoscopy 08/03/2024 with patent ileal pouch-anal anastomosis, characterized by healthy appearing mucosa and no stomal ulceration; the cuff appeared normal without any evidence of cuffitis; healthy appearing J pouch without any
endoscopic signs of inflammation or pouchitis with normal appearing efferent and afferent limbs, found to have an entero-enteric anastomosis with a well-healed ulceration 15-20 cms proximal from the J pouch within the afferent limb which appeared
consistent with an anastomotic ulcer. Biopsied to assess for IBD / Crohns. The examination was otherwise normal without any additional ulcerations or signs of inflammation
- Hgb remains stable with H/h 8.2 -> 7.9 -> 8.2 without signs of recurrent lower GI bleeding
Discussed with patient's primary Hospital Recruiter, Dr. Lionel Cain, later this afternoon. Apparently, patient had a prior anastomotic ulcer seen during his prior flex-sig back on 10/2023 (although patient doesn't recall this). This was
visualized at the anastomosis from the prior loop-ileostomy at the entero-enteric anastomosis. Discussed patient's recent clinical course and endoscopic findings and agrees that if this were to recur in the future, patient would likely require
surgical revision of the anastomosis. [place] to be ischemic in etiology. Provided patient color-copy of his prior endoscopy report previously and per his primary GI's request.
Recommendations:
- Advance diet to low-fiber, low-residue diet
- No signs of recurrent GI bleeding over past 48 hrs and stable H/h
- Trend Hgb with serial CBC, should have a repeat CBC as an outpatient in 2 weeks
- Inflammatory markers (ESR/CRP) wnl
- Defer repeat imaging at this time given previously known anastomotic ulcer, ultimately defer to his primary IBD team / CRS at [place]
- Await pathology results from anastomotic ulcer during flex-sig / pouchoscopy
- D/w patient's primary Hospital Recruiter (Dr. Cain) as mentioned above this afternoon
- If patient were to have recurrent lower GI bleeding as an outpatient, discussed that patient should go to [facility] as patient is known well to them for consideration of surgical revision with CRS given known intestinal anastomotic ulcer (this was also
seen during prior flex-sig 10/2023)
- No role for steroids or antibiotics as not consistent with IBD and/or pouchitis
- Avoidance of all NSAIDs and opioids. Okay for acetaminophen if needed for pain control for abdominal cramps
- Recommend chemical VTE ppx (ordered lovenox) while inpatient given his history of IBD and high risk for VTE
- Discussed importance of close f/u with patient's primary Hospital Recruiter, Dr. Cain
- Rest of care per primary team
#Mild Intrahepatic Biliary Ductal Dilatation
See on both CT and CTA with mild prominence of the intrahepatic bile ducts. No other RUQ discomfort or other biliary colic. LFTs within normal limits on admission. No prior opioids
Recommendations:
- Defer MRI/MRCP as this time given nml LFTs
- Could consider MRI/MRCP as an outpatient if biliary ductal dilatation is a new finding and no previous MRI/MRCP in the past. This can be decided as an outpatient with his primary GI
Discussed with primary internal medicine team this afternoon and discussed with patient's primary GI physician, Dr. Lionel Cain, for further continuity of care.
GI team will sign-off. Please call with any questions or concerns.
Subjective
Subjective
Date of Service: August 03, 2024
- S/p flex-sig / pouchoscopy 08/03/2024 with patent ileal pouch-anal anastomosis, characterized by healthy appearing mucosa and no stomal ulceration; the cuff appeared normal without any evidence of cuffitis; healthy appearing J pouch without any
endoscopic signs of inflammation or pouchitis with normal appearing efferent and afferent limbs, found to have an entero-enteric anastomosis with a well-healed ulceration 15-20 cms proximal from the J pouch within the afferent limb which appeared
consistent with an anastomotic ulcer. Biopsied to assess for IBD / Crohns. The examination was otherwise normal without any additional ulcerations or signs of inflammation
- Hgb remains stable with H/h 8.2 -> 7.9 -> 8.2 without signs of recurrent lower GI bleeding
Notified IBD team at [facility], spoke with Dr. Cain's nurse yesterday afternoon regarding patient's recent hospitalization, endoscopic findings and current clinical course. Additionally, faxed over recent hospital notes along with flex-sig /
pouchoscopy report.
Feeling well this morning, denies any further bloody stools. Mild abdominal cramping, but much improved without any nausea or vomiting. Hoping to have more solid food later today.
Objective
Data Reviewed
Laboratory Data:
Laboratory Results
08/03/24 04:31
08/03/24 04:31
Laboratory Results
Phosphorus 3.0 mg/dl (2.5-4.5) 08/02/24 04:04
Magnesium 1.9 mg/dl (1.6-2.3) 08/02/24 04:04
Total Bilirubin 0.3 mg/dl (0.2-1.3) 08/01/24 05:59
AST 14 U/L (17-59) L 08/01/24 05:59
ALT 13 U/L (0-50) 08/01/24 05:59
Alkaline Phosphatase 24 U/L (38-126) L 08/01/24 05:59
Vital Signs and I&O:
Vital Signs
Temp Pulse Resp BP Pulse Ox
98.1 F 65 11 107/61 97
08/03/24 03:01 08/03/24 04:00 08/03/24 04:00 08/03/24 04:00 08/02/24 21:24
I&O
08/01/24 08/02/24 08/03/24
06:59 06:59 06:59
Intake Total 900 / 900 1670 / 1670 2099
Output Total 1100 / 1100
Balance -200 / -200 1670 / 1670 2099
Physical Exam
Physical Exam
HEENT: Anicteric and Moist mucous membranes
Cardiology: Normal Sinus Rhythm
Pulmonary: Clear
GI: Soft, Non Distended and Non Tender
Extremities: No Edema
Neuro: Non Focal
--- NOTE | 2024-08-03 06:27 | PTCARENOTE ---
No acute events overnight. NS running at 100ml/hr. No bloody bms.
--- NOTE | 2024-08-03 13:06 | PTCARENOTE ---
Pt upgraded from CLD to low residue. Pt tolerated low res breakfast, however c/o abdominal cramping a couple hours after. IV dilaudid given for 7/10 lower abdominal pain. Pt reported soft, formed, non-bloody bowel movement.
--- NOTE | 2024-08-03 15:16 | W.PN.HOSP.TC ---
Today's Communication/Plan
-
adv to lrd
monitor bowel movements
Assessment / Plan
Assessment / Plan
Physical Exam
General: No acute distress, appears comfortable at this time
HEENT: NormoCephalic, Moist mucous membranes and Atraumatic
Respiratory: Clear
Cardiac: S1/S2 and Regular Rhythm; No Murmur or Rub
GI: Soft, Non Distended, Normal Bowel Sounds and Mild tenderness; No Organomegaly
Musculoskeletal: No Clubbing, No Cyanosis and No Edema
Skin: No Rash
Neuro: Nonfocal/grossly intact
38M Crohn's disease status post partial colon resection with J-pouch formation, ileostomy reversal, incisional hernia repair in 2012 on Remicade, chronic pain syndrome, depression, ADHD, presented with bright red blood per rectum and multiple
episodes of diarrhea. Mild abdominal cramping. Denied pain with bowel movements, fevers, chills, sweating, nausea/vomiting. No recent antibiotic use. Has not recently been on steroids.
Dr. Lionel Cain His GI doctor at [place]. His last colonoscopy was in October.
# Bright red blood per rectum secondary to enteritis likely secondary to Crohn's flare
# Crohn's disease status post partial colon resection with J-pouch formation, ileostomy with revision, incisional hernia repair
-CT abdomen pelvis showed postoperative changes of colectomy with prominence of the distal small bowel Aramis postoperative, short segment of mild wall thickening and mucosal hyperenhancement within the distal small bowel adjacent to the pouch
anastomosis suspicious for enteritis, mild prominence of intrahepatic bile ducts
-CTA was also done but largely non-diagnostic due to prior oral contrast use
-Has been stable on Remicade
-IV fluids
-C. difficile neg, other stool study results pending
-prn IV tylenol mod severe pain, dilaudid severe breakthrough pain
GI consult appreciated
-Flex sig �patent ileal pouch�anal anastomosis; healthy-appearing J-pouch; ulceration at the site of the anastomosis found 15 to 20 cm proximal to the J-pouch, possible anastomotic small bowel ulcer
� Biopsies taken
� Avoid steroids, antibiotics at this time
Follow pathology results
� Continue MRI�EEG for further evaluation, defer to GI
- Gastroenterology is engaged with IBD team at [facility]/[place] # will do on their standpoint as long as no bleeding
-adv to LRD - if tolerating - can dc later this evening/anthony; patient having cramping - therefore favor tomorrow
Acute Blood Loss Anemia
Chronic normocytic anemia
-Monitor H&H
-Vital signs otherwise stable
-Responded well to 1PRBC transfusion
-cont monitoring H&H, transfuse goal 7 given concern active bleeding
#Hypokalemia
#Hypocalcemia
Monitor and replete as necessary
Chronic pain syndrome
Depression/ADHD
Full code
DVT prophylaxis� Lovenox
Anticipated Discharge: Within 24 hours
Subjective/Interval History
-
Date of Service: August 03, 2024
Advance to low residue diet, hemoglobin stable
Objective Data
-
Labs:
Laboratory Results
08/03/24
04:31
WBC 4.0 L
Hgb 8.2 L
Hct 25.7 L
Plt Count 144
Sodium 141
Potassium 3.5
Chloride 109 H
Carbon Dioxide 27
BUN 7 L
Creatinine 0.6 L
Glucose 91
Calcium 7.7 L
Vital Signs:
Vital Signs
Temp Pulse Resp BP Pulse Ox
98.3 F 75 22 116/78 97
08/03/24 07:05 08/03/24 14:00 08/03/24 14:00 08/03/24 14:00 08/03/24 09:55
I&O
08/02/24 08/03/24 08/04/24
06:59 06:59 06:59
Intake Total 1670 / 1670 4260 / 4260
Balance 1670 / 1670 42 / 4260
Review of Systems
-
History Source: Patient
All other systems: Not reviewed unless documented
Data Reviewed
-
CT Scan: Report Reviewed by me
Medical Tests (Nuc Med, Echo etc): Report Reviewed by me
Labs: Labs Reviewed by me
[2024-08-03] MEDS: NSS IV (15:35)
--- NOTE | 2024-08-03 17:18 | CM ---
Patient with Hx Crohn's disease. Room air. Receiving SQ Lovenox, IV Dilaudid prn. Low residue diet. Transfer IMU to 3W today.
Met with patient earlier today due to MD notification of possible discharge. Patient stated he is not sure he feels ready to go home today because he is still having cramps- ---> Dr House made aware. His was at the bedside and will provide
transport home when discharged.
No CM d/c needs identified.
Plan home.
[2024-08-03] MEDS: LOVENOX 40 MG SC (18:11)
--- NOTE | 2024-08-03 23:35 | W.PN.UPDATE ---
Update Note
Progress Note Update
Notified by RN that patient wanted to leave AMA due to not receiving IV pain medication. On arrival to room, patient was dressed, removed his telemetry pack and was asking for IV to be removed. Spoke with patient and his , reviewed situation
and how pain medication (Dilaudid IV) was ordered for severe pain and he had rated his pain at 6 out of 10. Patient stated he had been receiving this pain regimen during his admission and felt now he was not being treated fairly. Reviewed AMA form
w/patient and his , after discussion, patient decided to stay overnight and get discharged by attending. He is refusing to wear shelter monitor and has no IV access. He states he will not ask for any further medication and will talk with the
attending/GI provider in the am for discharge. is staying overnight.
Background of situation: RN stated that patient rated his pain at 6 out of 10 and Dilaudid was ordered for severe break through pain (pain rated at 7 out of 10). RN did request pain medication for moderate pain from this provider, order placed for
Tylenol.
--- NOTE | 2024-08-04 00:07 | PTCARENOTE ---
Nurse answered to patient's call light @[phone]. Patient requested prn med that was discussed earlier with nurse which was prn IV ativan. Patient then stated he would also like his pain med. Patient stated ' I have a little pain, and it is about a 6',
when nurse asked about pain level. Nurse educated patient that current order is for severe pain, therefore will reach out to provider and update patient. While this nurse message PATTERN DUPLICATOR about patient's current order and pain level @2247, patient then
complain to [facility], requesting charge nurse. Charge nurse and nurse entered room to update patient, where patient's began using expletives at this nurse and yelling 'he has been bleeding out of his ass for 5 days' while patient
became angry stating he wants to leave, both patient and yelling at nurse. When nurse attempted to update patient on new order that meets patient's pain level, patient shouted at nurse ' you can keep that shit'. Upon leaving room to message PATTERN DUPLICATOR
@2308, charge nurse reports patient calling this nurse 'piece of shift', while using expletives.
PATTERN DUPLICATOR in to see patient, patient decides to stay but refusing any further care except for vitals to be taken, removes tele, does not want IV.
--- NOTE | 2024-08-04 00:14 | PTCARENOTE ---
This RN went into pt's room w/ RN Heather. Pt's and upset and stated 'You are treating me like I am a drug addict'. This RN and pt's RN attempted to explain pt's pain medication order. Pt and his began yelling and stated 'we have
been treated well until now' and 'I want to leave'. Pt's RN left room to message CONNIE. This RN attempted to talk to pt about his options but this pt yelled 'I was okay until this piece of shit came in'. AIR TUBE RELEASER up to floor to speak w/ pt. Pt staying on
unit but refusing any interventions. Director Law Enforcement notified.
[2024-08-04] MEDS: DILAUDID 1 MG IV ×2 (02:27→07:52)
--- NOTE | 2024-08-04 02:50 | PTCARENOTE ---
JAMES Lawler answered patient's call light @[phone], pt requesting IV to be placed and requesting pain med with pain level 7 or 8 out of 10. IV team notified and new IV placed. SAMPLE CARRIER in to see patient, tele replaced on patient. JAMES Lawler administered prn IV
dilaudid @[id number], spouse remains at bedside.
[2024-08-04 03:31] VITALS: BP 98/63
--- NOTE | 2024-08-04 06:25 | W.PN.GI.CBS2 ---
Today's Communication / Plan
-
Improving abdominal pain, stop opioids. Discussed path results at bedside, all consistent with an acute anastomotic ulceration without concern for IBD. Needs very close follow-up with his IBD team at [facility] with both his Customer Logistics Manager and
Colorectal surgeon. Okay for discharge from GI standpoint. See rest of care as outlined below.
Assessment / Plan
-
Mr. Christian is a 38 y.o male with past medical history of Crohn's disease s/p J-pouch (given previous c/f UC and s/p three-stage IPAA with creation of J pouch in [id number]) on IFX (q 8 weeks) and chronic pain syndrome who presented to the ED with
bright red blood per rectum. Gastroenterology has been consulted for further evaluation and management.
#Hematochezia #Lower GI Bleed
#Acute Blood Loss Anemia
#Hx of Crohn's Disease (on IFX q 8 weeks, previously in remission)
#S/p J-pouch/IPAA ([id number])
Impression: Patient with history Crohn's disease s/p previous J pouch ([id number]) which appears to have been in remission on IFX (q 8 weeks) presenting with multiple episodes of painless hematochezia over the past two days found to have acute blood
loss anemia and CT imaging 07/31 revealing post-operative changes of prior colectomy with prominence of the distal SB with mild wall thickening and mucosal hyperenhancement adjacent to the pouch anastomosis. CTA 07/31 grossly limited given previous
oral contrast and (-) for GI hemorrhage, however revealed concentric mural thickening of short segment of small bowel loop adjacent to anastomotic site in the right upper quadrant suggesting acute inflammatory change most likely related to the given
history of Crohn's disease. No previous flares and last flex-sig / pouchoscopy was reportedly normal back on 10/2023 and felt to be in endoscopic remission on IFX. Given his CT findings and bloody stools, concern for Crohn's pre-pouch ileitis with
likely ulcer formation of SB given CT imaging versus anastomotic ulceration. Doubt infectious etiology and C Diff testing negative. Much less likely pouchitis and/or cuffitis given degree of bloody stools and acute blood loss anemia. Denies any
other NSAIDs or chronic prior steroids. No other symptoms to suggest flare given his normal inflammatory markers on admission with CRP < 5 and ESR 7 on 07/31. Regardless, would benefit from flex-sig / pouchoscopy for further evaluation of both his
pouch along with distal SB given concern for possible pre-pouch ileitis. Given his acute drop in Hgb from 10s -> 7s would benefit from ongoing blood transfusions and would hold-off on repeat CTA given previous contrast within bowel and overall
HD-stability.
- S/p flex-sig / pouchoscopy 08/03/2024 with patent ileal pouch-anal anastomosis, characterized by healthy appearing mucosa and no stomal ulceration; the cuff appeared normal without any evidence of cuffitis; healthy appearing J pouch without any
endoscopic signs of inflammation or pouchitis with normal appearing efferent and afferent limbs, found to have an entero-enteric anastomosis with a well-healed ulceration 15-20 cms proximal from the J pouch within the afferent limb which appeared
consistent with an anastomotic ulcer. Biopsied to assess for IBD / Crohns. The examination was otherwise normal without any additional ulcerations or signs of inflammation
- Hgb remains stable with H/h 8.2 -> 7.9 -> 8.2 without signs of recurrent lower GI bleeding
Discussed with patient's primary Customer Logistics Manager, Dr. Lionel Cain, later this afternoon. Apparently, patient had a prior anastomotic ulcer seen during his prior flex-sig back on 10/2023 (although patient doesn't recall this). This was
visualized at the anastomosis from the prior loop-ileostomy at the entero-enteric anastomosis. Discussed patient's recent clinical course and endoscopic findings and agrees that if this were to recur in the future, patient would likely require
surgical revision of the anastomosis. [place] to be ischemic in etiology. Provided patient color-copy of his prior endoscopy report previously and per his primary GI's request.
Pathology 08/02 from anastomotic ulcer revealing active ileitis with extensive ulceration, (-) for dysplasia and CMV stain (-) for viral inclusions, thus not consistent with IBD and all 2/2 to acute, ischemic anastomotic ucleration at site of
anastomosis
Recommendations:
- Tolerating diet, continue low-fiber, low-residue diet
- No signs of recurrent GI bleeding over past 72 hrs and stable H/h
- Trend Hgb with serial CBC, should have a repeat CBC as an outpatient in 2 weeks
- Inflammatory markers (ESR/CRP) wnl
- Defer repeat imaging at this time given previously known anastomotic ulcer, ultimately defer to his primary IBD team / CRS at [facility]
- D/w patient's primary Customer Logistics Manager (Dr. Cain) as mentioned above on 08/04
- If patient were to have recurrent lower GI bleeding as an outpatient, discussed that patient should go to [facility] as patient is known well to them for consideration of surgical revision with CRS given known intestinal anastomotic ulcer (this was also
seen during prior flex-sig 10/2023)
- No role for steroids or antibiotics as not consistent with IBD and/or pouchitis
- Avoidance of all NSAIDs and opioids. Okay for acetaminophen if needed for pain control for abdominal cramps
- Recommend chemical VTE ppx (ordered lovenox) while inpatient given his history of IBD and high risk for VTE
- Discussed importance of close f/u with patient's IBD team with his primary Customer Logistics Manager, Dr. Cain, and his Colorectal surgeon at [facility]
- Rest of care per primary team
#Mild Intrahepatic Biliary Ductal Dilatation
See on both CT and CTA with mild prominence of the intrahepatic bile ducts. No other RUQ discomfort or other biliary colic. LFTs within normal limits on admission. No prior opioids
Recommendations:
- Defer MRI/MRCP as this time given nml LFTs
- Could consider MRI/MRCP as an outpatient if biliary ductal dilatation is a new finding and no previous MRI/MRCP in the past. This can be decided as an outpatient with his primary GI
Discussed with primary internal medicine team this morning and discussed with patient's primary GI physician, Dr. Lionel Cain, yesterday on 08/03 for further continuity of care.
GI team will sign-off. Please call with any questions or concerns.
Subjective
Subjective
Date of Service: August 04, 2024
- Reported pain overnight, concern for leaving AMA due to not receive IV pain medications
- Otherwise, H/h remains stable without signs of recurrent GI bleeding
- Pathology 08/02 from anastomotic ulcer revealing active ileitis with extensive ulceration, (-) for dysplasia and CMV stain (-) for viral inclusions
Reports feeling better this AM and improving abdominal pain. No nausea, vomiting or other recurrent bloody stools. Discussed pathology results at bedside and without findings to suggest IBD. Further, discussed importance of close outpatient
follow-up with his IBD team at [facility] with both his primary Customer Logistics Manager and Colorectal surgeon. Advised stopping opioids as they have been shown to have worsening outcomes in patients with IBD. Okay with standing high-dose tylenol along with
avoidance of NSAIDs.
Objective
Data Reviewed
Laboratory Data:
Laboratory Results
Phosphorus 3.0 mg/dl (2.5-4.5) 08/02/24 04:04
Magnesium 1.9 mg/dl (1.6-2.3) 08/02/24 04:04
Total Bilirubin 0.3 mg/dl (0.2-1.3) 08/01/24 05:59
AST 14 U/L (17-59) L 08/01/24 05:59
ALT 13 U/L (0-50) 08/01/24 05:59
Alkaline Phosphatase 24 U/L (38-126) L 08/01/24 05:59
Vital Signs and I&O:
Vital Signs
Temp Pulse Resp BP Pulse Ox
98.0 F 56 16 98/63 99
08/04/24 03:31 08/04/24 03:31 08/04/24 03:31 08/04/24 03:31 08/04/24 03:31
I&O
08/02/24 08/03/24 08/04/24
06:59 06:59 06:59
Intake Total 1670 / 1670 4260 / 4260 600 / 600
Balance 1670 / 1670 4260 / 4260 600 / 600
Physical Exam
Physical Exam
HEENT: Anicteric and Moist mucous membranes
Cardiology: Normal Sinus Rhythm
Pulmonary: Other (Normal WOB on room air)
GI: Soft, Non Distended, Non Tender and Other (Well-healed scars from prior abdominal surgeries)
Extremities: No Edema
Neuro: Non Focal
[2024-08-04 06:42] LABS: Hematocrit 24.8 % (39.0-52.0); Hemoglobin 8.4 g/dL (13.0-18.0); Mean Corp Hgb Conc. 33.9 g/dL (33.0-37.0); Mean Corpuscular Hgb 27.8 pg (27.0-31.0); Mean Corpuscular Volume 82.1 fL (80.0-94.0); Mean Platelet Volume 11.5 fL (7.4-10.4); Platelet Count 160 10^3/uL (130-400); Red Blood Cell Count 3.02 10^6/uL (4.70-6.10); Red Cell Dist. Width 14.6 % (11.5-14.5); White Blood Cell Count 4.4 10^3/uL (4.8-10.8)
[2024-08-04 07:10] VITALS: BP 104/42
[2024-08-04 07:28] LABS: Blood Urea Nitrogen 10 mg/dl (9-20); Carbon Dioxide 27 mmol/L (22-30); Chloride 103 mmol/L (98-107); Estimated Creatinine Clearance > 125 ml/min; Glucose 100 mg/dl (70-99); Potassium 3.5 mmol/L (3.5-5.1); Sodium 138 mmol/L (135-145); eGFR > 60.00
[2024-08-04 11:02] VITALS: BP 103/58
--- NOTE | 2024-08-04 12:54 | W.PN.HOSP.TC ---
Addendum entered and electronically signed by Delio House MD 08/04/24 17:30:
[id number]
Original Note:
Today's Communication/Plan
-
-CBC in 3-5 days
-F/u final path outpatient
� Avoid steroids, antibiotics at this time
-adv to LRD - - tolerating
-F/u IBD(GI and Colorectal) team at [facility]
Assessment / Plan
Assessment / Plan
Physical Exam
General: No acute distress, appears comfortable at this time
HEENT: NormoCephalic, Moist mucous membranes and Atraumatic
Respiratory: Clear
Cardiac: S1/S2 and Regular Rhythm; No Murmur or Rub
GI: Soft, Non Distended, Normal Bowel Sounds and Mild tenderness; No Organomegaly
Musculoskeletal: No Clubbing, No Cyanosis and No Edema
Skin: No Rash
Neuro: Nonfocal/grossly intact
38M Crohn's disease status post partial colon resection with J-pouch formation, ileostomy reversal, incisional hernia repair in 2012 on Remicade, chronic pain syndrome, depression, ADHD, presented with bright red blood per rectum and multiple
episodes of diarrhea. Mild abdominal cramping. Denied pain with bowel movements, fevers, chills, sweating, nausea/vomiting. No recent antibiotic use. Has not recently been on steroids.
Dr. Lionel Cain His GI doctor at [facility]. His last colonoscopy was in October.
# Bright red blood per rectum secondary to enteritis likely secondary to Crohn's flare
# Crohn's disease status post partial colon resection with J-pouch formation, ileostomy with revision, incisional hernia repair
-CT abdomen pelvis showed postoperative changes of colectomy with prominence of the distal small bowel [place] postoperative, short segment of mild wall thickening and mucosal hyperenhancement within the distal small bowel adjacent to the pouch
anastomosis suspicious for enteritis, mild prominence of intrahepatic bile ducts
-CTA was also done but largely non-diagnostic due to prior oral contrast use
-Has been stable on Remicade
-IV fluids
-C. difficile neg, other stool study results pending
-prn IV tylenol mod severe pain, dilaudid severe breakthrough pain
GI consult appreciated
-Flex sig �patent ileal pouch�anal anastomosis; healthy-appearing J-pouch; ulceration at the site of the anastomosis found 15 to 20 cm proximal to the J-pouch, possible anastomotic small bowel ulcer; path results consistent with an acute anastomotic
ulceration without concern for IBD.
� Biopsies taken
� Avoid steroids, antibiotics at this time
Follow pathology results
� Continue MRI�EEG for further evaluation, defer to GI
- Gastroenterology is engaged with IBD team at [facility] # will do on their standpoint as long as no bleeding
-adv to LRD - - tolerating
-F/u IBD(GI and Colorectal) team at [facility]
Acute Blood Loss Anemia
Chronic normocytic anemia
-Monitor H&H
-Vital signs otherwise stable
-Responded well to 1PRBC transfusion
-cont monitoring H&H, transfuse goal 7 given concern active bleeding
-f/u cbc in 3-5 days
#Hypokalemia
#Hypocalcemia
Monitor and replete as necessary
Chronic pain syndrome
Depression/ADHD
Full code
DVT prophylaxis� Lovenox
More than 30 minutes spent in discharge including
Final examination of the patient
Summarizing hospital stay
Instructions for continuing care to all relevant caregivers
Preparation of discharge records, prescriptions, and referral forms
Total time spent (37 in minutes):
Anticipated Discharge: Today
Subjective/Interval History
-
Date of Service: August 04, 2024
No acute events overnight
Objective Data
-
Labs:
Laboratory Results
08/04/24
06:29
WBC 4.4 L
Hgb 8.4 L
Hct 24.8 L
Plt Count 160
Sodium 138
Potassium 3.5
Chloride 103
Carbon Dioxide 27
BUN 10
Creatinine 0.8
Glucose 100 H
Calcium 8.0 L
Vital Signs:
Vital Signs
Temp Pulse Resp BP Pulse Ox
97.7 F 67 18 103/58 99
08/04/24 11:02 08/04/24 11:02 08/04/24 11:02 08/04/24 11:02 08/04/24 11:02
I&O
08/03/24 08/04/24 08/05/24
06:59 06:59 06:59
Intake Total 4260 / 4260 600 / 600
Balance 4260 / 4260 600 / 600
Review of Systems
-
History Source: Patient
All other systems: Not reviewed unless documented
Data Reviewed
-
CT Scan: Report Reviewed by me
Medical Tests (Nuc Med, Echo etc): Report Reviewed by me
Labs: Labs Reviewed by me
--- NOTE | 2024-08-04 13:00 | W.DS.TRANS ---
DC Summary - Logging Truck Driver
-
Discharge Instructions:
Discharge Diagnosis/Procedures
# Bright red blood per rectum
#ulceration at the site of the anastomosis found
15 to 20 cm proximal to the J-pouch, possible
anastomotic small bowel ulcer
Diet Low Residue
Activity As tolerated
Blood Work cbc in 3-5 days with pcp
Others Tests as Per [facility]
Instructions:
Stand-Alone Forms:
Changes to Home Medications: Yes
Discharge Medications:
DC Medications w/original date entered in [employer]
dextroamphetamine-amphetamine ER 30 mg 24hr capsule,extend release (Adderall XR) 30 mg PO DAILY 04/17/15
acetaminophen 325 mg tablet 650 mg (2 x 325 mg) PO Q6HPRN PRN mild-moderate pain #150 tabs 08/04/24
Home Medication Changes
acetaminophen 325 mg tablet 650 mg (2 x 325 mg) PO Q6HPRN PRN mild-moderate pain #150 tabs 08/04/24
Pending Results: No
[2024-08-04] MEDS: AFLURIA (36 mos+) 2024-2025 FORMULA 0.5 ML IM (13:22)
== END 2024-08-04 13:56 | disposition home or self-care (01) | DRG 386 ==
LOC: 3 WEST ACU 12:49
PROVIDERS: Internal Medicine; Physician Assistant; ADMITTING PHYSICIAN Hospitalist; ATTENDING PHYSICIAN Internal Medicine; CONSULT PHYSICIAN Student in an Organized Health Care Education/Training Program; EMERGENCY PHYSICIAN Emergency Medicine; FAMILY PHYSICIAN Physician Assistant Medical
PROC: 30233N1 Transfusion of Nonautologous Red Blood Cells into Peripheral Vein, Percutaneous Approach (ICD-10-PCS; 2024-08-01)
PROC: 0DJ08ZZ Inspection of Upper Intestinal Tract, Via Natural or Artificial Opening Endoscopic (ICD-10-PCS; 2024-08-02)
PROC: 0DBB8ZX Excision of Ileum, Via Natural or Artificial Opening Endoscopic, Diagnostic (ICD-10-PCS; 2024-08-02)
PROC: 3E02340 Introduction of Influenza Vaccine into Muscle, Percutaneous Approach (ICD-10-PCS; 2024-08-04)
DX: K50.011 Crohn's disease of small intestine with rectal bleeding (principal); D62 Acute posthemorrhagic anemia; K63.3 Ulcer of intestine; F32.A Depression, unspecified; F90.9 Attention-deficit hyperactivity disorder, unspecified type; G89.4 Chronic pain syndrome; E87.6 Hypokalemia; E83.51 Hypocalcemia; K83.8 Other specified diseases of biliary tract; Z88.1 Allergy status to other antibiotic agents; Z98.0 Intestinal bypass and anastomosis status; Z90.49 Acquired absence of other specified parts of digestive tract; Z23 Encounter for immunization
CPT/HCPCS: 88305; 74174; 74177; 80048; 80053; 83735; 84100; 85014; 85018; 85025; 85027; 85652; 86140; 86850; 86900; 86901; 86920; 87045; 87046; 87324; 87427; 87449; 90686; 96361; 96374; 99285; G0008; P9016; Q9967